=== PATIENT | male | born 1965 | race Caucasian/White ===

== ENCOUNTER 2019-04-23 12:45 | Emergency (ER) | payer BC ==
[~2019-04-23] VITALS: Ht 167.6 cm; Wt 65.0 kg
[2019-04-23 12:55] VITALS: Ht 167.6 cm; Wt 65.0 kg
[2019-04-23] MEDS ORDERED: IBUPROFEN 800 MG TAB PO ONE (13:30)
--- NOTE | 2019-04-23 13:54 | ERD ---
ER Documentation Chief Complaint Chief Complaint Lt pinky finger injury has displaced fracture xray done 04/22 at urgent care HPI 53-year-old male with a history of HIV status post mechanical fall 2 days ago presenting from urgent care due to left hand injury. He states that he was too afraid to come in but since his hand was getting more and more swollen, he went to urgent care today. X-rays were done and he was sent here for joint disloca tion and fractures. He denies any numbness or tingling. His only complaint is pain and swelling. He denies any pain in his wrist or the rest of his arm. He does have swelling of his hand but denies any hand pain. His pain is in his fourth and fifth fingers of his left hand. ROS All systems reviewed and are negative except as per history of present illness. Medications Home Meds Reported Medications [Hiv ] No Conflict Check, 1 TAB PO DAILY 04/23/19 Acyclovir* (Acyclovir*) 800 Mg Tablet, 800 MG PO Q OTHER DAY, TAB 04/23/19 Allergies Allergies: Coded Allergies: No Known Allergy (Unverified , 04/23/19) PMhx/Soc History of Surgery: No Anesthesia Reaction: No Hx Neurological Disorder: No Hx Respiratory Disorders: No Hx Cardiac Disorders: No Hx Psychiatric Problems: No Hx Miscellaneous Medical Probl: Yes (HIV) Hx Alcohol Use: Yes (SOCIALLY A BEER 2 DAYS AGO) Hx Substance Use: Yes (METH IN THE PAST) Hx Tobacco Use: No FmHx Family History: No diabetes Physical Exam Vitals Vital Signs Date Temp Pulse Resp B/P (MAP) Pulse Ox O2 O2 Flow FiO2 Time Delivery Rate 04/23/19 98.1 74 18 121/66 100 Room Air 15:50 (84) 04/23/19 36.7 14:07 04/23/19 98.1 96 18 126/63 98 12:55 (84) Physical Exam INITIAL VITAL SIGNS: Reviewed by me GENERAL: Well appearing, non toxic, speaking in full sentences. HEENT: Atraumatic, Moist mucous membranes NECK: Supple. RESPIRATORY: No respiratory distress. EXTREMITIES: No clubbing or cyanosis. Left UPPER EXTREMITY: Fifth digit with dislocation at the PIP joint. No ecchymosis. Fourth digit, fifth digits, and dorsal hand with edema, nonpitting. No erythema. No laceration. Sensations intact in all distributions. Tendon function normal in fingers 1, 2, 3. Only able to flex fourth finger MCP. No flexion of the pinky finger. Unable to extend at DIP pinky. 2+ RP. CR < 2 sec. Full AROM in Wrist/Elbow/Shoulder. SKIN: Warm, dry. NEUROLOGIC: Alert and awake. No facial asymmetry. Normal speech. Results 24 hrs Current Medications Medications Dose Sig/Roro Start Time Status Last (Trade) Ordered Route PRN Stop Time Admin Dose Reason Admin Ibuprofen 800 mg ONCE ONCE 04/23/19 DC 04/23/19 (Motrin) PO 13:30 14:07 04/23/19 13:31 Lidocaine 10 ml ONCE STAT 04/23/19 DC HCl INJ 14:29 (Lidocaine 04/23/19 14:30 1% (Mdv) 10 ml) Lidocaine 20 ml STK-MED 04/23/19 DC (Xylocaine ONCE .ROUTE 14:31 1% (Mdv) 20 04/23/19 14:32 ml) Procedures/MDM Reduction by me: Anesthesia: Digital block Location: Left fifth finger at PIP. Technique: Gentle traction and manipulation Results: Unable to restore the normal anatomic position, unable to reduce, likely secondary to tendon entrapment versus injury. Neurovascularly intact post procedure. Splint Assessment: Neurovascularly intact post splint placement with good fit. Reduction by me: Anesthesia: Digital block Location: Left 4th finger at PIP. Technique: Gentle traction and manipulation Results: Muslim of normal anatomic positioning Neurovascularly intact post procedure. Patient is presenting with left hand finger injury that happened 2 days ago. At this time it seems he does have tendon injuries and will need to see a hand surgeon. He has no neurovascular compromise. I attempted reduction of the pinky finger without success. However I was able to reduce the fourth finger at the PIP, but there is still instability at that joint. Splints were applied. Patient will call his primary care doctor to get a referral to a hand surgeon within the next 1 week. Return precautions discussed. Departure Diagnosis: Primary Impression: Finger injury Encounter type: initial encounter Laterality: left Qualified Codes: S69.92XA - Unspecified injury of left wrist, hand and finger(s), initial encounter Additional Impression: Dislocation of PIP joint of finger Encounter type: initial encounter Qualified Codes: S63.289A - Dislocation of proximal interphalangeal joint of unspecified finger, initial encounter Condition: Stable EKMEKJIAN,NELLIE R. MD April 23, 2019 13:53
[2019-04-23] MEDS ORDERED: ACYC800T PO (14:21)
[2019-04-23] MEDS ORDERED: HIV PO (14:23)
[2019-04-23] MEDS ORDERED: LIDOCAINE 1% (MDV) 10 ML INJ INJ STA (14:29)
[2019-04-23] MEDS ORDERED: LIDOCAINE 1% (MDV) 20 ML INJ ONE (14:31)
[2019-04-23 15:50] VITALS: BP 121/66; PULSE 74; RESP 18
== END 2019-04-23 16:10 | disposition home or self-care (01) ==
LOC: E/R 12:45
DX: S63.287A Dislocation of proximal interphalangeal joint of left little finger, initial encounter (principal); W18.39XA Other fall on same level, initial encounter; Y92.9 Unspecified place or not applicable; Z21 Asymptomatic human immunodeficiency virus [HIV] infection status
CPT/HCPCS: 26770; 73130; Z7502; Z7610